=== PATIENT | male | born 1935 | race Caucasian/White ===

== ENCOUNTER 2017-05-07 09:53 | Emergency (ER) | payer OTHER ==
[~2017-05-07] VITALS: Ht 175.3 cm; Wt 99.8 kg
[~2017-05-07 09:53] MED LIST: ALTACE10 M1; ASA-EC81 MG; ATIVAN0.5 MG; CARVEDILOL3.125 MG; COUMADIN2 MG; COZAAR100 MG; DOXEPIN HCL50 MG; ISOSORBIDE DINI30 MG; LANTUS100 U/ML; LASIX20 MG; MICRO-K8 MEQ; NAMENDA XR1 EACH; NIFEDIPINE ER30 MG; NOVOLOG100 U/ML; PAXIL10 MG/5 ML; PLAVIX75 MG; PRILOSEC20 MG; PROSOM2 MG; TOPROL XL100 MG; WELLBUTRIN XL300 MG; ZOCOR20 MG
[2017-05-07] MEDS ORDERED: FOLIC ACID1 MG (10:41)
[2017-05-07] MEDS ORDERED: NIFEDIPINE ER30 MG (10:53)
[2017-05-07] MEDS ORDERED: RISPERDAL1 MG (10:54)
== END 2017-05-07 16:08 | disposition home or self-care (01) ==
LOC: ER 09:53
DX: R55 Syncope and collapse (principal)

== ENCOUNTER 2017-09-21 16:59 | Emergency (ER) | payer OTHER ==
[~2017-09-21] VITALS: Ht 177.8 cm; Wt 68.0 kg
[~2017-09-21 16:59] MED LIST changes: +CEFTRIAXONE2 GM IM; +FOLIC ACID1 MG; +INTEGRA PLUS C1 EACH PO; +PRILOSEC OTC20 MG PO; +RISPERDAL1 MG
== END 2017-09-21 21:18 | disposition home or self-care (01) ==
LOC: ER 16:59
DX: D64.89 Other specified anemias (principal); I10 Essential (primary) hypertension; G30.8 Other Alzheimer's disease; F02.80 Dementia in other diseases classified elsewhere, unspecified severity, without behavioral disturbance, psychotic disturbance, mood disturbance, and anxiety

== ENCOUNTER 2017-10-08 21:17 | Inpatient (IN) | payer OTHER ==
[~2017-10-08] VITALS: Ht 167.6 cm; Wt 54.4 kg
== END 2017-10-16 08:06 | disposition expired | DRG 853 ==
LOC: ER 21:17 → MEDJ 10-09 10:29 → SEC-K 10-09 10:29 → MEDI 10-09 11:32 → MEDJ 10-09 11:32
PROC: 4A033R1 Measurement of Arterial Saturation, Peripheral, Percutaneous Approach (ICD-10-PCS; 2017-10-09)
PROC: BT43ZZZ Ultrasonography of Bilateral Kidneys (ICD-10-PCS; 2017-10-09)
PROC: 30233N1 Transfusion of Nonautologous Red Blood Cells into Peripheral Vein, Percutaneous Approach (ICD-10-PCS; 2017-10-10)
PROC: 02HV33Z Insertion of Infusion Device into Superior Vena Cava, Percutaneous Approach (ICD-10-PCS; 2017-10-11)
PROC: 4A12X4Z Monitoring of Cardiac Electrical Activity, External Approach (ICD-10-PCS; 2017-10-11)
PROC: 3E0436Z Introduction of Nutritional Substance into Central Vein, Percutaneous Approach (ICD-10-PCS; 2017-10-13)
PROC: 0JBQ0ZZ Excision of Right Foot Subcutaneous Tissue and Fascia, Open Approach (ICD-10-PCS; principal; 2017-10-14)
DX: A41.9 Sepsis, unspecified organism (principal); L89.614 Pressure ulcer of right heel, stage 4; L89.153 Pressure ulcer of sacral region, stage 3; J18.9 Pneumonia, unspecified organism; I96 Gangrene, not elsewhere classified; N17.8 Other acute kidney failure; I50.30 Unspecified diastolic (congestive) heart failure; I13.0 Hypertensive heart and chronic kidney disease with heart failure and stage 1 through stage 4 chronic kidney disease, or unspecified chronic kidney disease; E11.52 Type 2 diabetes mellitus with diabetic peripheral angiopathy with gangrene; E87.0 Hyperosmolality and hypernatremia; E86.0 Dehydration; K21.9 Gastro-esophageal reflux disease without esophagitis; D50.8 Other iron deficiency anemias; Z74.01 Bed confinement status; Z86.73 Personal history of transient ischemic attack (TIA), and cerebral infarction without residual deficits; G30.8 Other Alzheimer's disease; F02.80 Dementia in other diseases classified elsewhere, unspecified severity, without behavioral disturbance, psychotic disturbance, mood disturbance, and anxiety; Z66 Do not resuscitate; E11.22 Type 2 diabetes mellitus with diabetic chronic kidney disease; E11.65 Type 2 diabetes mellitus with hyperglycemia; N18.1 Chronic kidney disease, stage 1; B96.4 Proteus (mirabilis) (morganii) as the cause of diseases classified elsewhere; B96.5 Pseudomonas (aeruginosa) (mallei) (pseudomallei) as the cause of diseases classified elsewhere; B95.2 Enterococcus as the cause of diseases classified elsewhere; K52.89 Other specified noninfective gastroenteritis and colitis; R65.20 Severe sepsis without septic shock; B96.29 Other Escherichia coli [E. coli] as the cause of diseases classified elsewhere; B96.6 Bacteroides fragilis [B. fragilis] as the cause of diseases classified elsewhere; B96.1 Klebsiella pneumoniae [K. pneumoniae] as the cause of diseases classified elsewhere; I48.0 Paroxysmal atrial fibrillation; L89.212 Pressure ulcer of right hip, stage 2; Z78.1 Physical restraint status